=== PATIENT | female | born 1990 | race Caucasian/White ===

== ENCOUNTER → 2023-06-13 09:49 | Outpatient (BNVA) | payer SELFPAY | PROVIDERS: PCP Nurse Practitioner Family; Visit Provider Nurse Practitioner Family | DX: D64.9 Anemia, unspecified (principal); E03.9 Hypothyroidism, unspecified | CPT/HCPCS: 80053; 82607; 83550; 84439; 84443; 84481; 85025 ==

== ENCOUNTER → 2023-08-01 09:35 | Outpatient (BNVA) | payer OTHER, SELFPAY | PROVIDERS: PCP Nurse Practitioner Family; Visit Provider Nurse Practitioner Family | DX: D50.0 Iron deficiency anemia secondary to blood loss (chronic) (principal); E53.8 Deficiency of other specified B group vitamins; E03.9 Hypothyroidism, unspecified | CPT/HCPCS: 82607; 83550; 84443; 85025 ==

== ENCOUNTER → 2023-09-19 10:22 | Outpatient (BNVA) | payer OTHER, SELFPAY | PROVIDERS: PCP Nurse Practitioner Family; Visit Provider Nurse Practitioner Family | DX: D50.0 Iron deficiency anemia secondary to blood loss (chronic) (principal); E03.9 Hypothyroidism, unspecified | CPT/HCPCS: 83550; 84443; 85025 ==

== ENCOUNTER → 2023-11-19 10:48 | Outpatient (BNVA) | payer OTHER, SELFPAY | PROVIDERS: PCP Nurse Practitioner Family; Visit Provider Nurse Practitioner Family | DX: E03.9 Hypothyroidism, unspecified (principal); D50.9 Iron deficiency anemia, unspecified | CPT/HCPCS: 83550; 84443; 85025 ==

== ENCOUNTER → 2024-01-03 10:50 | Outpatient (BNVA) | payer OTHER, SELFPAY | PROVIDERS: PCP Nurse Practitioner Family; Visit Provider Nurse Practitioner Family | DX: D50.8 Other iron deficiency anemias (principal); D50.0 Iron deficiency anemia secondary to blood loss (chronic); E03.9 Hypothyroidism, unspecified; I10 Essential (primary) hypertension; R53.83 Other fatigue | CPT/HCPCS: 80053; 83550; 84443; 85025 ==

== ENCOUNTER → 2024-05-07 10:35 | Outpatient (BNVA) | payer OTHER, SELFPAY | PROVIDERS: PCP Nurse Practitioner Family; Visit Provider Nurse Practitioner Family | DX: D50.0 Iron deficiency anemia secondary to blood loss (chronic) (principal); E03.9 Hypothyroidism, unspecified | CPT/HCPCS: 82607; 83550; 84443; 85025 ==

== ENCOUNTER → 2024-11-18 09:15 | Outpatient (BNVA) | payer OTHER, SELFPAY | PROVIDERS: PCP Nurse Practitioner Family; Visit Provider Nurse Practitioner Family | DX: I10 Essential (primary) hypertension (principal); E78.5 Hyperlipidemia, unspecified; E03.9 Hypothyroidism, unspecified | CPT/HCPCS: 80053; 80061; 84443 ==

== ENCOUNTER → 2025-02-16 09:16 | Outpatient (BNVA) | payer OTHER, SELFPAY | PROVIDERS: PCP Nurse Practitioner Family; Visit Provider Nurse Practitioner Family | DX: E53.8 Deficiency of other specified B group vitamins (principal); D50.8 Other iron deficiency anemias; E03.9 Hypothyroidism, unspecified; D50.0 Iron deficiency anemia secondary to blood loss (chronic); I10 Essential (primary) hypertension | CPT/HCPCS: 80053; 80061; 82607; 83550; 84443 ==